=== PATIENT | male | born 1965 | race Caucasian/White ===

== ENCOUNTER 2024-07-11 20:34 | Emergency (ER) | payer OTHER ==
--- NOTE | 2024-07-11 21:34 | EDPHYS ---
Physician Documentation [facility] Name: Trent Dubon Age: 58 yrs Sex: Male : 1965 Arrival Date: 07/11/2024 Time: 20:34 Bed 13 Private MD: ED Physician Leonid Harvey HPI: 07/11 21:10 This 58 yrs old Male presents to ER via Unassigned with complaints of Syncope. cp 21:10 The patient has experienced syncope, collapsed, lost consciousness. Onset: The cp symptoms/episode began/occurred just prior to arrival. Duration: This was a single episode, that lasted an unknown period of time. Context: the episode(s) was witnessed, by a bystander, occurred while the patient was standing, Just prior to the episode the patient experienced no apparent symptoms. Associated injury: The patient did not suffer any apparent associated injury. 21:10 Patient presents to ED via EMS after reported syncopal episode at local bar. Patient cp admits to having "couple beers". Reports working outside all day prior. Denies chest pain, denies abdominal pain. Historical: - Allergies: 21:22 No Known Allergies; rg5 - Immunization history:: Adult Immunizations up to date. - Infectious Disease History:: Denies. - Social history:: Smoking status: Patient denies any tobacco usage or history of. ROS: 21:15 Constitutional: Negative for body aches, chills, fever, poor PO intake, cp 21:15 Eyes: Negative for injury, pain, redness, and discharge, cp 21:15 ENT: Negative for drainage from ear(s), ear pain, sore throat, difficulty swallowing, difficulty handling secretions, 21:15 Cardiovascular: Negative for chest pain, edema, palpitations, 21:15 Respiratory: Negative for cough, shortness of breath, wheezing, 21:15 Abdomen/GI: Negative for abdominal pain, vomiting, diarrhea, constipation, 21:15 : Negative for urinary symptoms, 21:15 Neuro: Positive for syncope, Negative for altered mental status, headache, weakness, 21:15 All other systems are negative, Exam: 21:20 Constitutional: The patient appears in no acute distress, alert, awake, cp non-diaphoretic, non-toxic, well developed, well nourished, 21:20 Head/Face: Normocephalic, atraumatic. cp 21:20 Eyes: Periorbital structures: appear normal, Pupils: equal, round, and reactive to light and accomodation, Sclera: no appreciated abnormality, Lids and lashes: appear normal, bilaterally, 21:20 ENT: External ear(s): are unremarkable, Nose: is normal, Mouth: Lips: moist, Oral mucosa: moist, Posterior pharynx: Airway: no evidence of obstruction, patent, 21:20 Neck: ROM/movement: is normal, is supple, without pain, no range of motions limitations, 21:20 Chest/axilla: Inspection: normal, 21:20 Cardiovascular: Rate: normal, Rhythm: regular, Edema: is not appreciated, JVD: is not appreciated, 21:20 Respiratory: the patient does not display signs of respiratory distress, Respirations: normal, no use of accessory muscles, no retractions, labored breathing, is not present, Breath sounds: are clear throughout, no decreased breath sounds, no stridor, no wheezing, 21:20 Abdomen/GI: Inspection: abdomen appears normal, Palpation: abdomen is soft and non-tender, in all quadrants, 21:20 Back: pain, is absent, ROM is normal, 21:20 Neuro: Orientation: to person, place \\T\\ time. Mentation: able to follow commands, Motor: moves all fours, no focal deficits, Vital Signs: 21:12 BP 95 / 64; Pulse 88; Resp 18; Temp 98; Pulse Ox 96% on R/A; Pain 0/10; rg5 21:22 BP 95 / 64; Pulse 77; Resp 17; Temp 98; Pulse Ox 96% on R/A; Pain 0/10; rg5 21:12 Pain Scale: Adult rg5 21:22 Pain Scale: Adult rg5 MDM: 21:10 Patient medically screened. cp 21:35 Data reviewed: vital signs, nurses notes. cp 21:35 Refusal of service: The patient/guardian displays adequate decision making capability cp and despite a detailed discussion of alternatives, benefits, risks, and consequences refuses: all lab tests. ED course: Patient is able to make informed decisions and refuses any labs, ekg, and radiology imaging at this time. 07/11 21:08 Order name: Cardiac monitoring; Complete Time: 21:30 cp 07/11 21:08 Order name: O2 Sat Monitoring; Complete Time: 21:31 cp Administered Medications: 21:30 Not Given (Patient Refused): ns 0.9% 1000 ml IV at 1 bolus Per protocol; 1000 mL bolus rg5 Disposition: 07/12 00:10 Co-signature as Attending Physician, Leonid Harvey MD I reviewed the patient's care rn provided by the Advanced Practice Provider and agree with the diagnosis and treatment plan. Disposition Summary: 07/11/24 21:34 Left Against Medical Advice Notes: Location: Home cp Problem: new cp Symptoms: have improved cp Condition: Stable cp Diagnosis - Hypotension, unspecified cp - Syncope cp Followup: cp - With: Private Physician - When: As needed - Reason: Worsening of condition Discharge Instructions: - Discharge Summary Sheet cp - Hypotension cp - Syncope cp Signatures: Dispatcher [employer] EDMS Leonid Harvey MD MD rn Conrad Boucher PA PA cp Jose Reyes RN RN rg5 Corrections: (The following items were deleted from the chart) 07/11 21:09 21:09 Chest Single View+[id number].[email or web address] ordered. EDKS EDMS 21:30 21:08 EKG - Nurse/Tech ordered. cp rg5 21:30 21:08 IV Saline Lock ordered. cp rg5 21:31 21:08 Labs collected and sent ordered. cp rg5 21:31 21:08 Oxygen Per Protocol ordered. cp rg5
--- NOTE | 2024-07-11 21:34 | ER ---
Nurse's Notes [facility] Name: Trent Dubon Age: 58 yrs Sex: Male : 1965 Arrival Date: 07/11/2024 Time: 20:34 Bed 13 Private MD: Diagnosis: Hypotension, unspecified;Syncope Presentation: 07/11 21:12 Chief complaint: EMS states: patient has syncopal episode after drinking 3 bottles of rg5 beer in a bar. Coronavirus screen: Vaccine status: Patient reports receiving the 1st dose of the Covid vaccine. Client denies travel out of the [place] in the last 14 days. Ebola Screen: Patient negative for fever greater than or equal to 101.5 degrees Fahrenheit, and additional compatible Ebola Virus Disease symptoms. Initial Sepsis Screen: Does the patient meet any 2 criteria? No. Patient's initial sepsis screen is negative. Does the patient have a suspected source of infection? No. Patient's initial sepsis screen is negative. Risk Assessment: Do you want to hurt yourself or someone else? Patient reports no desire to harm self or others. Onset of symptoms was July 11, 2024. 21:12 Method Of Arrival: EMS: [facility] rg5 21:12 Acuity: KATHI 3 rg5 Triage Assessment: 21:22 General: Appears comfortable, Behavior is calm, cooperative, appropriate for age. Pain: rg5 Denies pain. Historical: - Allergies: 21:22 No Known Allergies; rg5 - Immunization history:: Adult Immunizations up to date. - Infectious Disease History:: Denies. - Social history:: Smoking status: Patient denies any tobacco usage or history of. Screenin:24 [facility] ED Fall Risk Assessment (Adult) History of falling in the last 3 months, rg5 including since admission No falls in past 3 months (0 pts) Confusion or Disorientation No (0 pts) Intoxicated or Sedated No (0 pts) Impaired Gait No (0 pts) Mobility Assist Device Used No (0 pt) Altered Elimination No (0 pt) Score/Fall Risk Level 0 - 2 = Low Risk Oriented to surroundings, Maintained a safe environment. Abuse screen: Denies threats or abuse. Nutritional screening: No deficits noted. Tuberculosis screening: No symptoms or risk factors identified. Assessment: 21:24 General: Appears. rg5 21:24 Pain: Denies pain. Neuro: Level of Consciousness is awake, alert, obeys commands, rg5 Oriented to person, place, time. 21:24 Cardiovascular: Denies chest pain, Heart tones S1 S2 Capillary refill < 3 seconds rg5 Patient's skin is warm and dry. Rhythm is sinus rhythm. Respiratory: Airway is patent Trachea midline Respiratory effort is even, unlabored, Respiratory pattern is regular, symmetrical. GI: No signs and/or symptoms were reported involving the gastrointestinal system. : No signs and/or symptoms were reported regarding the genitourinary system. EENT: No deficits noted. Derm: Skin is intact, Skin is dry, Skin is normal. Musculoskeletal: Range of motion: intact in all extremities. Vital Signs: 21:12 BP 95 / 64; Pulse 88; Resp 18; Temp 98; Pulse Ox 96% on R/A; Pain 0/10; rg5 21:22 BP 95 / 64; Pulse 77; Resp 17; Temp 98; Pulse Ox 96% on R/A; Pain 0/10; rg5 21:12 Pain Scale: Adult rg5 21:22 Pain Scale: Adult rg5 ED Course: 21:07 Patient arrived in ED. jb4 21:07 Conrad Boucher PA is PHCP. cp 21:07 Conrad Yip MD is Attending Physician. cp 21:11 Jose Reyes RN is Primary Nurse. rg5 21:12 Attending Physician role handed off by Conrad Yip MD rn 21:12 Leonid Harvey MD is Attending Physician. rn 21:22 Triage completed. rg5 21:24 Call light in reach. Side rails up X 1. Provided Education on: safety standing up . rg5 21:24 No provider procedures requiring assistance completed. Patient did not have IV access rg5 during this emergency room visit. Administered Medications: 21:30 Not Given (Patient Refused): ns 0.9% 1000 ml IV at 1 bolus Per protocol; 1000 mL bolus rg5 Medication: 21:24 VIS not applicable for this client. rg5 Outcome: 21:24 AMA AMA form signed rg5 21:24 Condition: stable 21:35 Patient left the ED. rg5 Signatures: Leonid Harvey MD MD rn Page, Corey, PA PA Khoi Estevez RN RN jb4 Reyes, Jose, RN RN rg5
[2024-07-11 22:12] VITALS: BP 95/64; TEMP 98; O2SAT 96
== END 2024-07-11 21:35 | disposition left against medical advice (07) ==
LOC: ER 20:34
DX: I95.9 Hypotension, unspecified (principal); R55 Syncope and collapse
CPT/HCPCS: 93005; 99283